=== PATIENT | female | born 1950 | race Caucasian/White ===

== ENCOUNTER 2020-06-16 22:42 | Inpatient (IN) ==
[2020-06-17] MEDS ORDERED: Naloxone 0.4 MG/ML INJ IVP PRN (01:38)
[2020-06-17] MEDS ORDERED: *HR* OxyCODONE Immed Rel 5 MG TABLET PO PRN (01:44)
[2020-06-17] MEDS ORDERED: Dextrose Gel 15 GM/37.5 ML TUBE PO PRN ×2 (01:46)
[2020-06-17] MEDS ORDERED: D5% in Water 1,000 ML IVC PRN (01:46)
[2020-06-17] MEDS ORDERED: *HR* Dextrose 50 % in Water (Vial) 50 ML VIAL IVP PRN (01:46)
[2020-06-17] MEDS: Insulin LISPRO 300 UNITS/3 ML VIAL SQ SCH ×5 (02:22→22:47)
[2020-06-17 03:26] LABS: Bilirubin,Urine Negative (Negative); Blood,Urine Small (Negative); Clarity,Urine Clear (Clear); Color,Urine Yellow (Yellow); Glucose,Urine (UA) 50 mg/dL (Normal); Ketones,Urine Negative (Negative); Leukocyte Esterase,Urine Negative (Negative); Nitrite,Urine Negative (Negative); PH,Urine 6.5 pH Units (5.0-8.0); Protein,Urine >=300 mg/dL (Neg-Trace); Specific Gravity,Urine > 1.030 (1.010-1.025); Urobilinogen,Urine Normal (Normal)
[2020-06-17] MEDS ORDERED: *HR* Metoprolol 5 MG/5 ML VIAL IVP ONE (03:54)
[2020-06-17 04:15] LABS: Adenovirus Not Detected (Not Detect); Bordetella Pertussis Not Detected (Not Detect); Chlamydophila pneumoniae Not Detected (Not Detect); Coronavirus 229E Not Detected (Not Detect); Coronavirus HKU1 Not Detected (Not Detect); Coronavirus NL63 Not Detected (Not Detect); Coronavirus OC43 Not Detected (Not Detect); Human Metapneumovirus Not Detected (Not Detect); Human Rhinovirus/Enterovirus Not Detected (Not Detect); Influenza A Subtype 2009 H1 Not Detected (Not Detect); Influenza B Not Detected (Not Detect); Mycoplasma pneumoniae Not Detected (Not Detect); Parainfluenza Virus 1 Not Detected (Not Detect); Parainfluenza Virus 2 Not Detected (Not Detect); Parainfluenza Virus 3 Not Detected (Not Detect); Parainfluenza Virus 4 Not Detected (Not Detect); Respiratory Syncytial Virus Not Detected (Not Detect)
[2020-06-17 06:10] LABS: INR 1.4; Prothrombin Time 15.5 Seconds (9.4-12.1)
[2020-06-17 06:12] LABS: Mean Platelet Volume 11.7 fL (9.4-12.4)
[2020-06-17 06:14] LABS: Basophils % 0.3 %; Eosinophils # 0.3 K/mcL (0.0-0.6); Eosinophils % 2.1 %; Hematocrit 31.8 % (35.3-44.9); Hemoglobin 9.9 g/dL (11.5-15.4); Immature Granulocytes % 0.3 % (0-4); Immature Platelets 3.9 % (1.1-6.1); Lymphocytes % 8.6 %; Mean Corpuscular HGB Conc 31.1 g/dL (31.6-35.5); Mean Corpuscular Hemoglobin 29.5 pg (28.0-33.3); Mean Corpuscular Volume 94.6 fL (83.0-100.0); Monocytes # 0.5 K/mcL (0.0-1.3); Monocytes % 3.9 %; Neutrophils # 9.9 K/mcL (1.6-8.9); Red Blood Count 3.36 M/mcL (3.82-4.97); Red Cell Distribution Width 14.8 % (11.5-14.5); Segmented Neutrophils % 84.8 %; White Blood Count 11.7 K/mcL (4.3-11.1)
[2020-06-17 06:17] LABS: Platelet Count 82 K/mcL (140-400)
[2020-06-17] MEDS: *HR* Heparin 5,000 UNIT/ML VIAL SQ SCH ×3 (06:20→22:48)
[2020-06-17 06:33] LABS: Troponin I 0.04 ng/mL (< 0.04)
[2020-06-17 06:34] LABS: Albumin 2.2 g/dL (3.5-5.7); Albumin/Globulin Ratio 0.6 (1.1-2.2); Bilirubin,Total 1.7 mg/dL (0.3-1.0); Calcium 7.8 mg/dL (8.6-10.3); Globulin 3.4 g/dL (2.4-3.5); Magnesium 1.7 mg/dL (1.6-2.6); Phosphorous 4.3 mg/dL (2.7-4.5); Potassium 4.9 mEq/L (3.5-5.1); Total Protein 5.6 g/dL (6.4-8.9)
[2020-06-17] MEDS: cefTRIAXone 1,000 MG in 0.9 % Sodium Chloride Mini Bag 100 ML IVPB SCH (08:36)
[2020-06-17] MEDS: Azithromycin 500 MG in 0.9 % Sodium Chloride 250 ML IVPB SCH (08:36)
[2020-06-17] MEDS: Lactulose Oral Soln 20 GM/30 ML UDC PO SCH ×3 (08:39→22:47)
[2020-06-17 11:31] LABS: Lactate Dehydrogenase 146 Units/L (140-271)
[2020-06-17] MEDS: Acetaminophen 325 MG TABLET PO PRN (11:39)
[2020-06-17] MEDS: Isosorbide MONOnitrate (24 HR) 60 MG TAB.ER.24H PO SCH (11:39)
[2020-06-17 11:42] LABS: C-Reactive Protein 147 mg/L (Less than 10)
[2020-06-17 11:49] LABS: Ferritin 431 ng/mL (10-120)
[2020-06-17] MEDS ORDERED: *HR* Metoprolol 5 MG/5 ML VIAL IVP PRN (12:48)
[2020-06-17] MEDS ORDERED: Insulin DETEMIR 100 UNIT/ML X5UNITS SQ SCH (21:00)
[2020-06-17] MEDS ORDERED: NON-FORMULARY MEDICATION 1 EACH EACH (Pravastatin Sodium [Pravachol] 20 MG) PO SCH (21:00)
[2020-06-17] MEDS: Gabapentin 300 MG CAPSULE PO SCH (22:48)
[2020-06-17] MEDS: (Tacrolimus [Prograf] 0.5 MG) PO SCH (22:48)
[2020-06-18] MEDS ORDERED: 0.9 % Sodium Chloride 500 ML ONE (03:48)
[2020-06-18] MEDS: 0.9 % Sodium Chloride 500 ML IVC PRN ×2 (03:56→15:11)
[2020-06-18] MEDS: *HR* Heparin 5,000 UNIT/ML VIAL SQ SCH (04:55)
[2020-06-18 05:38] LABS: Basophils % 0.2 %; Hematocrit 29.8 % (35.3-44.9); Hemoglobin 8.8 g/dL (11.5-15.4); Immature Granulocytes % 0.3 % (0-4); Lymphocytes # 1.2 K/mcL (0.6-4.6); Lymphocytes % 13.8 %; Mean Corpuscular HGB Conc 29.5 g/dL (31.6-35.5); Mean Corpuscular Hemoglobin 28.6 pg (28.0-33.3); Mean Corpuscular Volume 96.8 fL (83.0-100.0); Mean Platelet Volume 11.2 fL (9.4-12.4); Monocytes # 0.6 K/mcL (0.0-1.3); Monocytes % 6.9 %; Red Blood Count 3.08 M/mcL (3.82-4.97); Red Cell Distribution Width 15.2 % (11.5-14.5); Segmented Neutrophils % 73.8 %; White Blood Count 8.9 K/mcL (4.3-11.1)
[2020-06-18 05:44] LABS: Eosinophils # 0.5 K/mcL (0.0-0.6); Neutrophils # 6.6 K/mcL (1.6-8.9); Platelet Count 86 K/mcL (140-400)
[2020-06-18 05:45] LABS: Albumin 1.9 g/dL (3.5-5.7); Albumin/Globulin Ratio 0.6 (1.1-2.2); Bilirubin,Total 1.1 mg/dL (0.3-1.0); Calcium 7.1 mg/dL (8.6-10.3); Globulin 3.2 g/dL (2.4-3.5); Potassium 4.7 mEq/L (3.5-5.1); Total Protein 5.1 g/dL (6.4-8.9)
[2020-06-18] MEDS: Insulin LISPRO 300 UNITS/3 ML VIAL SQ SCH ×4 (08:21→23:21)
[2020-06-18] MEDS: Isosorbide MONOnitrate (24 HR) 60 MG TAB.ER.24H PO SCH ×2 (08:22)
[2020-06-18] MEDS: Iron Polysaccharide Complex 150 MG CAPSULE PO SCH (08:23)
[2020-06-18] MEDS: Lactulose Oral Soln 20 GM/30 ML UDC PO SCH ×3 (08:26→23:21)
[2020-06-18] MEDS: (Tacrolimus [Prograf] 0.5 MG) PO SCH ×2 (08:26→19:38)
[2020-06-18] MEDS: Azithromycin 500 MG in 0.9 % Sodium Chloride 250 ML IVPB SCH (08:51)
[2020-06-18] MEDS: cefTRIAXone 1,000 MG in 0.9 % Sodium Chloride Mini Bag 100 ML IVPB SCH (08:51)
[2020-06-18] MEDS ORDERED: Isovue-370 500 ML BOTTLE IVP ONE (09:54)
[2020-06-18 09:55] LABS: Adenovirus Not Detected (Not Detect); Bordetella Pertussis Not Detected (Not Detect); Chlamydophila pneumoniae Not Detected (Not Detect); Coronavirus 229E Not Detected (Not Detect); Coronavirus HKU1 Not Detected (Not Detect); Coronavirus NL63 Not Detected (Not Detect); Coronavirus OC43 Not Detected (Not Detect); Human Metapneumovirus Not Detected (Not Detect); Human Rhinovirus/Enterovirus Not Detected (Not Detect); Influenza A Subtype 2009 H1 Not Detected (Not Detect); Influenza B Not Detected (Not Detect); Mycoplasma pneumoniae Not Detected (Not Detect); Parainfluenza Virus 1 Not Detected (Not Detect); Parainfluenza Virus 2 Not Detected (Not Detect); Parainfluenza Virus 3 Not Detected (Not Detect); Parainfluenza Virus 4 Not Detected (Not Detect); Respiratory Syncytial Virus Not Detected (Not Detect); SARS-CoV-2 Not Detected (Not Detect)
[2020-06-18] MEDS ORDERED: Albumin 25% 25gram/100mL 25 GM/100 ML IV.SOLN IVPB ONE (11:13)
[2020-06-18 12:10] LABS: Hepatitis B Surface Antibody < 3.10 mIU/mL
[2020-06-18 12:21] LABS: Hepatitis B Surface Antigen Nonreactive (Nonreactive)
[2020-06-18] MEDS ORDERED: 0.9 % Sodium Chloride 250 ML IVC PRN (12:39)
[2020-06-18] MEDS ORDERED: 0.9 % Sodium Chloride 1,000 ML PRIME SCH (12:45)
[2020-06-18] MEDS ORDERED: *HR* Heparin 10,000 UNIT/10 ML VIAL IV PRN (13:00)
[2020-06-18] MEDS ORDERED: 0.9 % Sodium Chloride 500 ML IVC SCH (15:00)
[2020-06-18] MEDS: Acetaminophen 325 MG TABLET PO PRN (15:18)
[2020-06-18] MEDS: Gabapentin 300 MG CAPSULE PO SCH (19:37)
[2020-06-18] MEDS ORDERED: Insulin DETEMIR 100 UNIT/ML X5UNITS SQ SCH (21:00)
[2020-06-19] MEDS: Acetaminophen 325 MG TABLET PO PRN (04:51)
[2020-06-19 05:12] LABS: Basophils % 0.5 %; Hemoglobin 8.8 g/dL (11.5-15.4); Immature Granulocytes % 0.3 % (0-4); Lymphocytes # 0.9 K/mcL (0.6-4.6); Lymphocytes % 16.3 %; Mean Corpuscular Hemoglobin 28.9 pg (28.0-33.3); Monocytes # 0.5 K/mcL (0.0-1.3); Monocytes % 8.2 %; Red Blood Count 3.04 M/mcL (3.82-4.97); Red Cell Distribution Width 15.2 % (11.5-14.5); White Blood Count 5.7 K/mcL (4.3-11.1)
[2020-06-19 05:14] LABS: Eosinophils # 0.6 K/mcL (0.0-0.6); Eosinophils % 9.6 %; Hematocrit 29.2 % (35.3-44.9); Mean Corpuscular HGB Conc 30.1 g/dL (31.6-35.5); Mean Corpuscular Volume 96.1 fL (83.0-100.0); Mean Platelet Volume 11.2 fL (9.4-12.4); Neutrophils # 3.7 K/mcL (1.6-8.9); Nucleated Red Blood Cells 0.3 /100 WBC (0); Segmented Neutrophils % 65.1 %
[2020-06-19 05:15] LABS: Platelet Count 81 K/mcL (140-400)
[2020-06-19 05:36] LABS: Albumin 2.2 g/dL (3.5-5.7); Albumin/Globulin Ratio 0.7 (1.1-2.2); Bilirubin,Total 0.9 mg/dL (0.3-1.0); Calcium 6.9 mg/dL (8.6-10.3); Globulin 3.2 g/dL (2.4-3.5); Potassium 4.4 mEq/L (3.5-5.1); Total Protein 5.4 g/dL (6.4-8.9)
[2020-06-19] MEDS: Insulin LISPRO 300 UNITS/3 ML VIAL SQ SCH ×3 (09:04→16:27)
[2020-06-19] MEDS: Isosorbide MONOnitrate (24 HR) 60 MG TAB.ER.24H PO SCH ×2 (09:22→09:51)
[2020-06-19] MEDS: Azithromycin 500 MG in 0.9 % Sodium Chloride 250 ML IVPB SCH (09:27)
[2020-06-19] MEDS: cefTRIAXone 1,000 MG in 0.9 % Sodium Chloride Mini Bag 100 ML IVPB SCH (09:27)
[2020-06-19] MEDS: Lactulose Oral Soln 20 GM/30 ML UDC PO SCH ×2 (09:29→14:42)
[2020-06-19] MEDS: (Tacrolimus [Prograf] 0.5 MG) PO SCH (09:29)
[2020-06-19] MEDS: Iron Polysaccharide Complex 150 MG CAPSULE PO SCH (09:31)
[2020-06-19 13:57] LABS: Total Protein,Pleural Fluid 2.4 g/dL
[2020-06-19 22:23] LABS: Appearance of Pleural Fl Hazy (Clear)
[2020-06-20] MEDS: Insulin LISPRO 300 UNITS/3 ML VIAL SQ SCH ×5 (00:10→21:00)
[2020-06-20 06:31] LABS: Immature Granulocytes % 0.4 % (0-4)
[2020-06-20 06:33] LABS: Basophils % 0.8 %; Eosinophils # 0.5 K/mcL (0.0-0.6); Eosinophils % 9.5 %; Hematocrit 29.3 % (35.3-44.9); Hemoglobin 8.8 g/dL (11.5-15.4); Immature Platelets 3.7 % (1.1-6.1); Lymphocytes % 21.1 %; Mean Corpuscular Hemoglobin 28.6 pg (28.0-33.3); Mean Corpuscular Volume 95.1 fL (83.0-100.0); Mean Platelet Volume 10.7 fL (9.4-12.4); Monocytes # 0.4 K/mcL (0.0-1.3); Monocytes % 8.5 %; Neutrophils # 2.9 K/mcL (1.6-8.9); Red Blood Count 3.08 M/mcL (3.82-4.97); Red Cell Distribution Width 15.3 % (11.5-14.5); Segmented Neutrophils % 59.7 %; White Blood Count 4.8 K/mcL (4.3-11.1)
[2020-06-20 06:43] LABS: Calcium 7.1 mg/dL (8.6-10.3); Potassium 4.7 mEq/L (3.5-5.1)
[2020-06-20 07:29] LABS: Platelet Count 92 K/mcL (140-400)
[2020-06-20] MEDS: Iron Polysaccharide Complex 150 MG CAPSULE PO SCH (08:45)
[2020-06-20] MEDS: Azithromycin 250 MG TABLET PO SCH (08:45)
[2020-06-20] MEDS: cefTRIAXone 1,000 MG in 0.9 % Sodium Chloride Mini Bag 100 ML IVPB SCH (08:45)
[2020-06-20 11:24] LABS: Adenovirus Not Detected (Not Detect); Coronavirus 229E Not Detected (Not Detect); Coronavirus HKU1 Not Detected (Not Detect); Coronavirus NL63 Not Detected (Not Detect); Coronavirus OC43 Not Detected (Not Detect); Human Metapneumovirus Not Detected (Not Detect); Human Rhinovirus/Enterovirus Not Detected (Not Detect); Influenza A Subtype 2009 H1 Not Detected (Not Detect); Influenza B Not Detected (Not Detect); Parainfluenza Virus 1 Not Detected (Not Detect); Parainfluenza Virus 2 Not Detected (Not Detect); SARS-CoV-2 Not Detected (Not Detect)
[2020-06-20 11:25] LABS: Bordetella Pertussis Not Detected (Not Detect); Chlamydophila pneumoniae Not Detected (Not Detect); Mycoplasma pneumoniae Not Detected (Not Detect); Parainfluenza Virus 3 Not Detected (Not Detect); Parainfluenza Virus 4 Not Detected (Not Detect); Respiratory Syncytial Virus Not Detected (Not Detect)
[2020-06-20] MEDS: Acetaminophen 325 MG TABLET PO PRN (18:21)
[2020-06-21 01:29] LABS: Basophils % 0.6 %; Mean Corpuscular HGB Conc 30.4 g/dL (31.6-35.5)
[2020-06-21 01:32] LABS: Eosinophils # 0.4 K/mcL (0.0-0.6); Eosinophils % 8.6 %; Hematocrit 30.6 % (35.3-44.9); Hemoglobin 9.3 g/dL (11.5-15.4); Immature Granulocytes % 0.2 % (0-4); Immature Platelets 2.6 % (1.1-6.1); Lymphocytes % 20.9 %; Mean Corpuscular Hemoglobin 28.9 pg (28.0-33.3); Mean Platelet Volume 10.9 fL (9.4-12.4); Monocytes # 0.5 K/mcL (0.0-1.3); Monocytes % 9.5 %; Neutrophils # 2.8 K/mcL (1.6-8.9); Platelet Count 93 K/mcL (140-400); Red Blood Count 3.22 M/mcL (3.82-4.97); Red Cell Distribution Width 15.2 % (11.5-14.5); Segmented Neutrophils % 60.2 %; White Blood Count 4.7 K/mcL (4.3-11.1)
[2020-06-21 01:42] LABS: Potassium 4.8 mEq/L (3.5-5.1)
[2020-06-21] MEDS: Ipratropium/Albuterol Neb 3 ML IH PRN (07:44)
[2020-06-21] MEDS: Insulin LISPRO 300 UNITS/3 ML VIAL SQ SCH ×4 (07:46→21:08)
[2020-06-21] MEDS ORDERED: *HR* Heparin 10,000 UNIT/10 ML VIAL IV PRN (08:47)
[2020-06-21] MEDS ORDERED: 0.9 % Sodium Chloride 250 ML IVC PRN (08:47)
[2020-06-21] MEDS: Acetaminophen 325 MG TABLET PO PRN (10:23)
[2020-06-21] MEDS: Iron Polysaccharide Complex 150 MG CAPSULE PO SCH (10:24)
[2020-06-21] MEDS: Azithromycin 250 MG TABLET PO SCH (10:24)
[2020-06-21] MEDS: cefTRIAXone 1,000 MG in 0.9 % Sodium Chloride Mini Bag 100 ML IVPB SCH ×2 (14:55→16:14)
[2020-06-21] MEDS ORDERED: Vancomycin 1,250 MG/262.5 ML IV.SOLN IVPB ONE (17:22)
[2020-06-21] MEDS: Piperacillin/Tazobactam 3.375 GM in 0.9 % Sodium Chloride Mini Bag 100 ML IVPB SCH (23:38)
[2020-06-22] MEDS: Ipratropium/Albuterol Neb 3 ML IH PRN ×2 (03:07→11:59)
[2020-06-22 04:37] LABS: Immature Granulocytes % 0.3 % (0-4); Lymphocytes % 25.8 %; Mean Platelet Volume 10.4 fL (9.4-12.4); Red Blood Count 3.28 M/mcL (3.82-4.97)
[2020-06-22 04:39] LABS: Eosinophils # 0.2 K/mcL (0.0-0.6); Eosinophils % 4.9 %; Hematocrit 31.2 % (35.3-44.9); Hemoglobin 9.7 g/dL (11.5-15.4); Immature Platelets 2.5 % (1.1-6.1); Mean Corpuscular HGB Conc 31.1 g/dL (31.6-35.5); Mean Corpuscular Hemoglobin 29.6 pg (28.0-33.3); Mean Corpuscular Volume 95.1 fL (83.0-100.0); Monocytes # 0.5 K/mcL (0.0-1.3); Monocytes % 13.4 %; Neutrophils # 2.1 K/mcL (1.6-8.9); Red Cell Distribution Width 15.1 % (11.5-14.5); Segmented Neutrophils % 54.6 %; White Blood Count 3.9 K/mcL (4.3-11.1)
[2020-06-22 04:43] LABS: Platelet Count 81 K/mcL (140-400)
[2020-06-22 04:53] LABS: Albumin 2.4 g/dL (3.5-5.7); Albumin/Globulin Ratio 0.7 (1.1-2.2); Bilirubin,Total 0.9 mg/dL (0.3-1.0); Calcium 7.3 mg/dL (8.6-10.3); Globulin 3.6 g/dL (2.4-3.5); Magnesium 1.8 mg/dL (1.6-2.6); Phosphorous 4.4 mg/dL (2.7-4.5); Potassium 3.8 mEq/L (3.5-5.1)
[2020-06-22] MEDS: Insulin LISPRO 300 UNITS/3 ML VIAL SQ SCH ×3 (07:44→17:00)
[2020-06-22] MEDS: Iron Polysaccharide Complex 150 MG CAPSULE PO SCH (08:29)
[2020-06-22] MEDS: Piperacillin/Tazobactam 3.375 GM in 0.9 % Sodium Chloride Mini Bag 100 ML IVPB SCH (11:40)
[2020-06-22 13:46] LABS: ABG Base Excess 1 mEq/L (-2 to 3); ABG HCO3 27 mEq/L (21-27); ABG Oxygen Saturation 84 % (95-98); ABG PCO2 52 mmHg (35-45); ABG PH 7.33 pH Units (7.32-7.45); ABG PO2 53 mmHg (85-104); ABG TCO2 29 mEq/L (20-26)
[2020-06-22] MEDS: Ipratropium/Albuterol Neb 3 ML IH SCH ×2 (13:52→16:35)
[2020-06-22 19:19] VITALS: BP 147/70
== END 2020-06-22 21:27 | disposition short-term general hospital (02) | DRG 139 ==
LOC: CDU → SUATTDRO 06-17 14:56 → 2NENU 06-18 18:27 → 2ANU 06-20 16:52
PROVIDERS: ADMIT Internal Medicine; ATTEND Internal Medicine